=== PATIENT | male | born 1970 | race African-American/Black ===

== ENCOUNTER 2017-04-19 17:29 | Emergency (ER) | payer OTHER ==
[2017-04-19] MEDS ORDERED: CLINDAMYCIN 600MG PREMIX IVPB 600 MG/50 ML BAG IVPB ONE (18:11)
[2017-04-19] MEDS ORDERED: SODIUM CHLORIDE 1,000 ML IV STA (18:11)
[2017-04-19] MEDS ORDERED: KETOROLAC TROMETHAMINE 30 MG/1 ML VIAL IVPUSH ONE (18:11)
--- NOTE | 2017-04-19 18:11 | PDOC ---
History of Present Illness - General History Source: Patient Exam Limitations: No Limitations - History of Present Illness Initial Comments: 04/19/17 18:13 The patient is a 46 year old male with no significant past medical history who presents to the ED with complaints of throat pain, ear pain and eye pain for several days. The patient reports an onset of left sided throat pain that started 5 days ago. He states his throat pain is worsened with eating. Patient notes his symptoms worsened and he later developed left sided ear pain and left sided eye pain. Patient went to urgent care earlier today, was negative for strep throat, and was sent to the ED for further testing. Patient denies taking any medication for pain. Denies fever or chills. Denies cough or shortness of breath. Denies chest pain or palpitations. Denies nasal congestion. Denies nausea, vomiting, or diarrhea. Denies any other symptoms. <Lincoln Iyer - Last Filed: 04/19/17 18:12> <Concepción Walker - Last Filed: 04/20/17 12:02> - General Chief Complaint: Sore Throat Stated Complaint: LEFT EAR,EYE, PAIN Time Seen by Provider: 04/19/17 17:52 Past History <Lincoln Iyer - Last Filed: 04/19/17 18:12> - Past Medical History Asthma: Yes (childhood) Cardiac Disorders: No CVA: No COPD: No CHF: No DVT: No Dementia: No Diabetes: No Disorders: Yes (kidney stones 2005) Kidney Stones: Yes - Surgical History Neurologic Surgery: Yes (SPINAL FUSION) - Suicide/Smoking/Psychosocial Hx Smoking Status: Yes Smoking History: Current every day smoker Have you smoked in the past 12 months: Yes Number of Cigarettes Smoked Daily: 3 'Breaking Loose' booklet given: 11/06/15 Hx Alcohol Use: Yes (social drinker, few beers every few months) Drug/Substance Use Hx: No Substance Use Type: None Hx Substance Use Treatment: No <Concepción Walker - Last Filed: 04/20/17 12:02> - Past Medical History Allergies/Adverse Reactions: Allergies Allergy/AdvReac Type Severity Reaction Status Date / Time No Known Allergies Allergy Verified 04/19/17 17:31 Home Medications: Ambulatory Orders Cyclobenzaprine HCl [Flexeril -] 10 mg PO HS #7 tablet 04/19/17 Review of Systems - Review of Systems Able to Perform ROS?: Yes Comments:: 04/19/17 18:13 GENERAL/CONSTITUTIONAL: No fever or chills. No weakness. HEAD, EYES, EARS, NOSE AND THROAT: + throat pain, ear pain, eye pain. No change in vision. CARDIOVASCULAR: No chest pain or shortness of breath. RESPIRATORY: No cough, wheezing, or hemoptysis. GASTROINTESTINAL: No nausea, vomiting, diarrhea or constipation. GENITOURINARY: No dysuria, frequency, or change in urination. MUSCULOSKELETAL: No joint or muscle swelling or pain. No neck or back pain. SKIN: No rash NEUROLOGIC: No headache, vertigo, loss of consciousness, or change in strength/ sensation. ENDOCRINE: No increased thirst. No abnormal weight change. HEMATOLOGIC/LYMPHATIC: No anemia, easy bleeding, or history of blood clots. ALLERGIC/IMMUNOLOGIC: No hives or skin allergy. All Other Systems: Reviewed and Negative <Lincoln Iyer - Last Filed: 04/19/17 18:12> *Physical Exam - Physical Exam Comments: GENERAL: Awake, alert, and fully oriented, in no acute distress HEAD: No signs of trauma EYES: PERRLA, EOMI, sclera anicteric, conjunctiva clear ENT: Auricles normal inspection, hearing grossly normal, nares patent, oropharynx erythematous without exudates. Moist mucosa. +Erythema to the superior and inferior edges of the L TM. NECK: Normal ROM. No JVD or masses. +L anterior cervical lymphadenopathy. +Soft tissue tenderness L neck. No asymmetry. No mastoid tenderness. LUNGS: Breath sounds equal, clear to auscultation bilaterally. No wheezes, and no crackles HEART: Regular rate and rhythm, normal S1 and S2, no murmurs, rubs or gallops ABDOMEN: Soft, nontender, normoactive bowel sounds. No guarding, no rebound. No masses EXTREMITIES: Normal range of motion, no edema. No clubbing or cyanosis. No cords, erythema, or tenderness NEUROLOGICAL: Cranial nerves II through XII grossly intact. Normal speech, normal gait SKIN: Warm, Dry, normal turgor, no rashes or lesions noted. <Concepción Walker - Last Filed: 04/20/17 12:02> ED Treatment Course - LABORATORY CBC & Chemistry Diagram: 04/19/17 18:40 04/19/17 18:40 <Concepción Walker - Last Filed: 04/20/17 12:02> Medical Decision Making - Medical Decision Making 04/19/17 19:[address] Beckman at shift change. Awaiting CT soft tissue neck, as patient has significant tenderness of the left side of neck and limited ability to turn to the R due to the pain. Will obtain CT r/o abscess. <Concepción Walker - Last Filed: 04/20/17 12:02> *DC/Admit/Observation/Transfer - Attestations Scribe Attestion: 04/19/17 18:13 Documentation prepared by Lincoln Iyer, acting as emergency medical technician basic for Concepción Walker MD <Lincoln Iyer - Last Filed: 04/19/17 18:12> <Concepción Walker - Last Filed: 04/20/17 12:02> Diagnosis at time of Disposition: Neck pain on left side, Viral illness - Discharge Dispostion Disposition: HOME Condition at time of disposition: Stable - Prescriptions Prescriptions: Cyclobenzaprine HCl [Flexeril -] 10 mg PO HS #7 tablet - Patient Instructions Additional Instructions: Take Tylenol or Motrin as needed for pain. In addition for stiffness of the neck U can take Flexeril one tablet before bed. Return to the emergency department immediately with ANY new, persistent or worsening symptoms. Continue any medications as previously prescribed by your physician. You should follow up with your primary doctor as soon as possible regarding today's emergency department visit. . Please make sure your doctor reviews the results of your emergency evaluation. Thank you for coming to the Emergency Department today for your care. It was a pleasure to see you today. Please note that your evaluation is INCOMPLETE until you follow-up with your doctor.
[2017-04-19] MEDS ORDERED: KETOROLAC TROMETHAMINE 30 MG/1 ML VIAL ONE (18:50)
[2017-04-19] MEDS ORDERED: CLINDAMYCIN PHOSPHATE 600 MG/4 ML VIAL ONE (18:51)
[2017-04-19 19:04] VITALS: BP 122/77; PULSE 53; TEMP 98.3; BMI 30.8
[2017-04-19 19:05] LABS: BASO % 2.4 % (0-2.0); EOS % 3.2 % (0-4.5); HEMATOCRIT 42.9 % (35.4-49); HEMOGLOBIN 14.4 GM/dl (11.7-16.9); LYMPH % 41.1 % (8-40); MCH 29.2 pg (25.7-33.7); MCHC 33.7 g/dl (32.0-35.9); MEAN CELL VOLUME 86.7 fl (80-96); MEAN PLT VOLUME 8.2 fl (7.5-11.1); MONO % 10.4 % (3.8-10.2); NEUT % 42.9 % (42.8-82.8); PLATELET COUNT 338 K/MM3 (134-434); RBC 4.95 M/mm3 (4.00-5.60); RDW 13.5 % (11.9-15.9); WHITE BLOOD COUNT 7.5 K/mm3 (4.0-10.8)
[2017-04-19 19:18] LABS: ALBUMIN 3.8 g/dl (3.5-5.0); ALK PHOS 72 U/L (32-92); ANION GAP 5 (8-16); BILIRUBIN,TOTAL 0.5 mg/dl (0.2-1.0); BLOOD UREA NITROGEN 12 mg/dl (7-18); CALCIUM 9.3 mg/dl (8.4-10.2); CHLORIDE 101 mmol/L (98-107); CO2 29 mmol/L (22-28); CREATININE 0.9 mg/dl (0.6-1.3); GLUCOSE,RANDOM 84 mg/dl (74-106); SGOT/AST 17 U/L (10-42); SGPT/ALT 21 U/L (10-40); SODIUM 135 mmol/L (136-145); TOT PROT 6.8 g/dl (6.4-8.3)
--- NOTE | 2017-04-19 19:24 | PDOC ---
*Physical Exam - Vital Signs Last Vital Signs Temp Pulse Resp BP Pulse Ox 98.3 F 53 L 20 122/77 96 04/19/17 17:30 04/19/17 17:30 04/19/17 17:30 04/19/17 17:30 04/19/17 17:30 ED Treatment Course - LABORATORY CBC & Chemistry Diagram: 04/19/17 18:40 02 18:40 - ADDITIONAL ORDERS Additional order review: Laboratory Results 04/19/17 18:40 Sodium 135 L Potassium 4.0 Chloride 101 Carbon Dioxide 29 H Anion Gap 5 L BUN 12 Creatinine 0.9 Creat Clearance w eGFR > 60 Random Glucose 84 Calcium 9.3 Total Bilirubin 0.5 D AST 17 ALT 21 Alkaline Phosphatase 72 Total Protein 6.8 Albumin 3.8 04/19/17 18:40 RBC 4.95 MCV 86.7 MCHC 33.7 RDW 13.5 MPV 8.2 Neutrophils % 42.9 D Lymphocytes % 41.1 H D Monocytes % 10.4 H Eosinophils % 3.2 Basophils % 2.4 H D - Medications Given in the ED: ED Medications Discontinued Medications Generic Name Dose Route Start Last Admin Trade Name Freq PRN Reason Stop Dose Admin Clindamycin Phosphate 600 mg in 50 mls @ 100 mls/hr 04/19/17 18:11 04/19/17 18:58 Cleocin 600 Mg Premix Ivpb - IVPB 04/19/17 18:40 100 mls/hr ONCE ONE Administration Sodium Chloride 1,000 mls @ 1,000 mls/hr 04/19/17 18:11 04/19/17 18:58 Normal Saline - IV 04/19/17 19:10 1,000 mls/hr ASDIR STA Administration Ketorolac Tromethamine 30 mg 04/19/17 18:11 04/19/17 18:58 Toradol Injection - IVPUSH 04/19/17 18:12 30 mg ONCE ONE Administration Progress Note - Progress Note Progress Note: Care of this patient was transferred to ok from Dr. Walker at 1900 hrs. This is a 46-year-old male with some mild erythema of his tympanic membrane and significant discomfort and tenderness of his left lateral face and neck. Patient is afebrile and he had a workup including a CBC with a normal white count and no left shift. Patient's chemistries are normal Patient has a CT of his neck pending to rule out any soft tissue abscess or infection. EXAM: CT neck with contrast HISTORY: Diffuse left-sided neck pain. COMPARISON: None. FINDINGS: 1. There are mildly prominent bilateral cervical lymph nodes. These are nonspecific in appearance and are most likely inflammatory in nature. None demonstrate necrosis. 2. There is moderate prominence of the palatine tonsils without associated areas of abnormal tonsillar or peritonsillar enhancement. 3. There is no evidence of an inflammatory process or abscess in the superficial or deep soft tissues of the neck. 4. There is normal enhancement of the major cervical vascular structures. 5. The bony structures are unremarkable in appearance. This study was discussed with Dr Shaw 8:30 PM April 19, 2017. THIS DOCUMENT HAS BEEN ELECTRONICALLY SIGNED Concepción Jackson MD 04/19/2017 20:45 EST Patient's symptoms most likely are secondary to a viral type illness. As patient has a normal white count and no left shift. There could also be a torticollis component to the symptoms so we'll give patient a short course of some Flexeril to see if that will improve his symptoms Otherwise patient advised to take ibuprofen or Tylenol for the pain and follow- up with his doctor next week if not improved *DC/Admit/Observation/Transfer Diagnosis at time of Disposition: Neck pain on left side, Viral illness - Discharge Dispostion Disposition: HOME Condition at time of disposition: Stable - Referrals - Patient Instructions Additional Instructions: Take Tylenol or Motrin as needed for pain. In addition for stiffness of the neck U can take Flexeril one tablet before bed. Return to the emergency department immediately with ANY new, persistent or worsening symptoms. Continue any medications as previously prescribed by your physician. You should follow up with your primary doctor as soon as possible regarding today's emergency department visit. . Please make sure your doctor reviews the results of your emergency evaluation. Thank you for coming to the Emergency Department today for your care. It was a pleasure to see you today. Please note that your evaluation is INCOMPLETE until you follow-up with your doctor. - Post Discharge Activity
== END 2017-04-19 21:09 | disposition home or self-care (01) ==
LOC: FER 17:29
PROC: 3E03329 Introduction of Other Anti-infective into Peripheral Vein, Percutaneous Approach (ICD-10-PCS; principal; 2017-04-19)
PROC: 3E0337Z Introduction of Electrolytic and Water Balance Substance into Peripheral Vein, Percutaneous Approach (ICD-10-PCS; 2017-04-19)
PROC: 3E033GC Introduction of Other Therapeutic Substance into Peripheral Vein, Percutaneous Approach (ICD-10-PCS; 2017-04-19)
DX: B34.9 Viral infection, unspecified (principal); M54.2 Cervicalgia; F17.210 Nicotine dependence, cigarettes, uncomplicated
CPT/HCPCS: 36415; 70491-TC; 80053; 85025; 96365; 96375; 99282-25

== ENCOUNTER 2019-10-17 19:22 | Emergency (ER) | payer OTHER ==
--- NOTE | 2019-10-17 19:38 | PDOC ---
Rapid Medical Evaluation Time Seen by Provider: 10/17/19 19:34 Medical Evaluation: Allergies Allergy/AdvReac Type Severity Reaction Status Date / Time No Known Allergies Allergy Verified 09/22/17 20:27 10/17/19 19:35 I have performed a brief in-person evaluation of this patient. The patient presents with a chief complaint of: L flank pain x few days. No n/v/f/c or dysuria. Might have had renal stones in the past, smoker Pertinent physical exam findings:stable, mildly uncomfortable I have ordered the following:labs/ua The patient will proceed to the ED for further evaluation. Discharge Disposition - Diagnosis Left flank pain - Referrals - Patient Instructions - Post Discharge Activity
[2019-10-17 19:39] VITALS: BMI 35.2
--- NOTE | 2019-10-17 21:13 | PDOC ---
Attending Attestation - Resident Resident Name: Mayito Honeycutt - ED Attending Attestation I have performed the following: I have examined & evaluated the patient, The case was reviewed & discussed with the resident, I agree w/resident's findings & plan - HPI HPI: 10/17/19 21:30 see resident hpi - Physicial Exam PE: 10/17/19 21:30 see resident exam - Medical Decision Making 10/17/19 21:30 48-year-old male with left flank pain and possible history of ureterolithiasis requiring procedure Plan for labs, CT scan abdomen and pelvis IV fluid normal saline and opioid analgesics pending results Discharge - Discharge Information Problems reviewed: Yes Clinical Impression/Diagnosis: Left flank pain - Follow up/Referral Referrals: Riaz Parker MD [Primary Care Provider] - - Patient Discharge Instructions - Post Discharge Activity
[2019-10-17] MEDS ORDERED: KETOROLAC TROMETHAMINE 15 MG/ML VIAL IVPUSH ONE (21:21)
[2019-10-17] MEDS ORDERED: morphine CARPU-JECT 4 MG/1 ML DISP.SYRIN IVPUSH ONE (21:23)
[2019-10-17] MEDS ORDERED: ONDANSETRON 4 MG/2 ML VIAL IVPUSH ONE (21:24)
[2019-10-17] MEDS ORDERED: LACTATED RINGERS SOLUTION 1000 ML INFUS.BAG IV ONE (21:24)
[2019-10-17 21:55] LABS: BASO % 0.9 % (0-2.0); EOS % 2.7 % (0-4.5); HEMATOCRIT 45.6 % (35.4-49); HEMOGLOBIN 15.5 GM/dL (11.7-16.9); LYMPH % 36.2 % (8-40); MCH 29.8 pg (25.7-33.7); MCHC 33.9 g/dl (32.0-35.9); MEAN CELL VOLUME 87.9 fl (80-96); MEAN PLT VOLUME 8.4 fl (7.5-11.1); MONO % 8.7 % (3.8-10.2); NEUT % 51.5 % (42.8-82.8); PLATELET COUNT 299 K/MM3 (134-434); RBC 5.19 M/mm3 (4.00-5.60); RDW 14.4 % (11.9-15.9); WHITE BLOOD COUNT 9.2 K/mm3 (4.0-10.0)
[2019-10-17 21:56] LABS: PH,URINE 5.5 (5.0-8.0); URINE APPEARANCE Clear; URINE BILIRUBIN Negative (NEGATIVE); URINE COLOR Yellow; URINE GLUCOSE (UA) Negative (NEGATIVE); URINE KETONE Negative (NEGATIVE); URINE LEUK ESTERASE Negative (NEGATIVE); URINE NITRITE Negative (NEGATIVE); URINE PROTEIN Negative (NEGATIVE); URINE UROBILINOGEN 0.2 mg/dL (0.2-1.0)
[2019-10-17 22:17] LABS: ALBUMIN 3.8 g/dl (3.4-5.0); BILIRUBIN,TOTAL 0.3 mg/dL (0.2-1); BLOOD UREA NITROGEN 13.5 mg/dL (7-18); CALCIUM 9.2 mg/dL (8.5-10.1); POTASSIUM 4.3 mmol/L (3.5-5.1); TOT PROT 7.5 g/dl (6.4-8.2)
[2019-10-17] MEDS ORDERED: morphine SULFATE 4 MG/ML VIAL ONE (22:33)
--- NOTE | 2019-10-17 23:54 | PDOC ---
History of Present Illness - General Chief Complaint: Pain, Acute Stated Complaint: PAIN Time Seen by Provider: 10/17/19 19:34 - History of Present Illness Initial Comments: 48 YOM no significant medical history presents with left flank and abdominal pain of 4 days duration. Pain is 8/10 in intensity, sharp in quality, radiates f rom flank to abdomen, no other associated symptoms. Patient reports no trauma to the area. Patient denies fever, chills, nausea, vomiting, diarrhea, changes in urinary habits, blood in urine, change in bowel habits, blood in stool. Constitutional: No Weight Change, No Fever, No Chills, No Night Sweats, No Fatigue, No Malaise ENT/Mouth: No Hearing Changes, No Ear Pain, No Nasal Congestion, No Sinus Pain, No Hoarseness, No sore throat, No Rhinorrhea, No Swallowing Difficulty Eyes: No Eye Pain, No Swelling, No Redness, No Foreign Body, No Discharge, No Vision Changes Cardiovascular: No Chest Pain, No SOB, No PND, No Dyspnea on Exertion, No Orthopnea, No Claudication, No Edema, No Palpitations Respiratory: No Cough, No Sputum, No Wheezing, No Smoke Exposure, No Dyspnea Gastrointestinal: No Nausea, No Vomiting, No Diarrhea, No Constipation, No Heartburn, No Anorexia, No Dysphagia, No Hematochezia, No Melena, No Flatulence, No Jaundice Genitourinary: No Dysmenorrhea, No DUB, No Dyspareunia, No Dysuria, No Urinary Frequency, No Hematuria, No Urinary Incontinence, No Urgency, No Urinary Flow Changes, No Hesitancy Musculoskeletal: No Arthralgias, No Myalgias, No Joint Swelling, No Joint Stiffness, No Back Pain, No Neck Pain, No Injury History Skin: No Skin Lesions, No Pruritis, No Hair Changes, No Breast/Skin Changes, No Nipple Discharge Neuro: No Weakness, No Numbness, No Paresthesias, No Loss of Consciousness, No Syncope, No Dizziness, No Headache, No Coordination Changes, No Recent Falls Psych: No Anxiety/Panic, No Depression, No Insomnia, No Personality Changes, No Delusions, No Rumination, No SI/HI/AH/VH, No Social Issues, No Memory Changes, No Violence/Abuse Hx., No Eating Concerns Heme/Lymph: No Bruising, No Bleeding, No Transfusions History, No Lymphadenopat hy Endocrine: No Polyuria, No Polydipsia, No Temperature Intolerance 10/18/19 00:00 Past History - Medical History Allergies/Adverse Reactions: Allergies Allergy/AdvReac Type Severity Reaction Status Date / Time No Known Allergies Allergy Verified 10/17/19 19:36 Home Medications: Ambulatory Orders Cyclobenzaprine HCl [Flexeril -] 10 mg PO HS #7 tablet 04/19/17 Cyclobenzaprine HCl [Flexeril -] 10 mg PO TID PRN #14 tablet 09/23/17 Ibuprofen 800 mg PO QID PRN #20 tablet 09/23/17 Asthma: Yes (childhood) Cardiac Disorders: No CVA: No COPD: No CHF: No DVT: No Dementia: No Diabetes: No Disorders: Yes (kidney stones 2005) Kidney Stones: Yes - Surgical History Neurologic Surgery: Yes (SPINAL FUSION) - Psycho-Social/Smoking History Smoking Status: Yes Smoking History: Current every day smoker Have you smoked in the past 12 months: Yes Number of Cigarettes Smoked Daily: 4 Cigars Per Day: 0 Information on smoking cessation initiated: No 'Breaking Loose' booklet given: 11/06/15 - Substance Abuse Hx (Audit-C & DAST Scrn) How often the patient has a drink containing alcohol: Monthly or less Score: In Men: 4 or > Positive; In Women: 3 or > Positive: 1 Screen Result (Pos requires Nsg. Audit-10AR): Negative *Physical Exam - Vital Signs Last Vital Signs Temp Pulse Resp BP Pulse Ox 98.6 F 79 18 136/90 99 10/17/19 19:36 10/17/19 19:36 10/17/19 19:36 10/17/19 19:36 10/17/19 19:36 - Physical Exam General Appearance: Yes: Nourished, Appropriately Dressed, Moderate Distress HEENT: positive: EOMI, ESTHER, Normal ENT Inspection, Normal Voice Neck: positive: Trachea midline, Normal Thyroid Respiratory/Chest: positive: Lungs Clear, Normal Breath Sounds Cardiovascular: positive: Regular Rhythm, Regular Rate, S1, S2 Gastrointestinal/Abdominal: positive: Normal Bowel Sounds, Flat, Soft Musculoskeletal: positive: Normal Inspection, CVA Tenderness Extremity: positive: Normal Capillary Refill Integumentary: positive: Normal Color, Dry, Warm Neurologic: positive: juvenile corrections officer II-XII NML intact, Fully Oriented, Alert, Normal Mood/Affect, Normal Response, Motor Strength 07/04 ED Treatment Course - LABORATORY CBC & Chemistry Diagram: 10/17/19 21:40 10/17/19 21:40 - ADDITIONAL ORDERS Additional order review: Laboratory Results 10/17/19 10/17/19 21:40 21:40 Sodium 137 Potassium 4.3 Chloride 102 Carbon Dioxide 29 Anion Gap 6 L BUN 13.5 Creatinine 1.0 Est GFR (CKD-EPI)AfAm 104.15 Est GFR (CKD-EPI)NonAf 89.86 Random Glucose 84 Calcium 9.2 Total Bilirubin 0.3 AST 19 ALT 34 Alkaline Phosphatase 96 Creatine Kinase 162 Troponin I 0.02 Total Protein 7.5 Albumin 3.8 Urine Color Yellow Urine Appearance Clear Urine pH 5.5 Ur Specific Fowler 1.020 Urine Protein Negative Urine Glucose (UA) Negative Urine Ketones Negative Urine Blood Negative Urine Nitrite Negative Urine Bilirubin Negative Urine Urobilinogen 0.2 Ur Leukocyte Esterase Negative 10/17/19 21:40 RBC 5.19 MCV 87.9 MCHC 33.9 RDW 14.4 MPV 8.4 Neutrophils % 51.5 Lymphocytes % 36.2 D Monocytes % 8.7 Eosinophils % 2.7 Basophils % 0.9 - RADIOLOGY Radiology Studies Ordered: Category Date Time Status SPIRAL- RENAL-STONE CT [CT] Stat CT Scan 10/17/19 21:20 Completed - Medications Given in the ED: ED Medications Discontinued Medications Generic Name Dose Route Start Last Admin Trade Name Freq PRN Reason Stop Dose Admin Ketorolac Tromethamine 15 mg 10/17/19 21:21 10/17/19 22:48 Toradol Injection - IVPUSH 10/17/19 21:22 Not Given ONCE ONE Lactated Ringer's 1,000 ml 10/17/19 21:24 10/17/19 22:47 Lactated Ringers Solution IV 10/17/19 21:25 1,000 ml ONCE ONE Administration Morphine Sulfate 4 mg 10/17/19 21:23 10/17/19 22:47 Morphine Injection - IVPUSH 10/17/19 21:24 4 mg ONCE ONE Administration Ondansetron HCl 4 mg 10/17/19 21:24 10/17/19 22:48 Zofran Injection IVPUSH 10/17/19 21:25 Not Given ONCE ONE Medical Decision Making - Medical Decision Making 48 YOM no significant medical history presents with left flank and abdominal pain of 4 days duration. Pain is 8/10 in intensity, sharp in quality, radiates from flank to abdomen, no other associated symptoms. Patient reports no trauma to the area. Patient denies fever, chills, nausea, vomiting, diarrhea, changes in urinary habits, blood in urine, change in bowel habits, blood in stool. On arrival, vitals were wnl. Physical exam unremarkable. ddx includes: mesenteric ischemia, nephrolithiasis, diverticulitis, AAA, pyelonephritis, cystitis. plan: UA, CBC, CMP, lactate, CT abdomen and pelvis reassess: UA and labs wnl, CT abdomen and pelvis negative. Patient requested additional work up to include CT with contrast which was done. CT w/ contrast was negative as well. Given patients multiple encounters with behavioral health and substance abuse treatment urine toxicology was performed which was positive for PCP. Patient was informed of results of labs, imagining, and toxicology as well as presumptive diagnosis of muscular strain. He was satisfied with this work up and endorsed a desire to be discharged. dispo: discharge to home. 10/18/19 01:40 Discharge - Discharge Information Problems reviewed: Yes Clinical Impression/Diagnosis: Left flank pain, Flank pain - Admission No - Follow up/Referral Referrals: Riaz Parker MD [Primary Care Provider] - - Patient Discharge Instructions Patient Printed Discharge Instructions: DI for Flank Pain Additional Instructions: You were seen in the emergency department for flank pain and abdominal pain. You received CT with and without contrast as well as labs. Your labs and imagining were unremarkable. Please return to the emergency department if you experience worsening of your symptoms or any of the following: chest pain, shortness of breath, vomiting, diarrhea, fever, chills, blood in your urine or stool. Please follow up with your primary care regarding your visit to the emergency department. - Post Discharge Activity
[2019-10-18 00:16] LABS: COCAINE, UR NEGATIVE ng/ml (CUTOFF=300); OPIATES, URI NEGATIVE ng/ml (CUTOFF=300); URINE AMPHETAMINES NEGATIVE ng/ml (CUTOFF=500); URINE BARBITURATES NEGATIVE ng/ml (CUTOFF=200)
[2019-10-18 00:17] LABS: METHADONE, UR NEGATIVE ng/ml (CUTOFF=300); URINE BENZODIAZEPINES NEGATIVE ng/ml (CUTOFF=200)
[2019-10-18 00:19] LABS: PHENCYCLIDINE,URINE POSITIVE ng/ml (CUTOFF=25)
[2019-10-18 02:16] VITALS: BP 128/76; PULSE 53; TEMP 98.2
--- NOTE | 2019-10-18 09:08 | EKG ---
Test Reason : Blood Pressure : / mmHG Vent. Rate : 045 BPM Atrial Rate : 045 BPM P-R Int : 164 ms QRS Dur : 084 ms QT Int : 456 ms P-R-T Axes : 052 060 027 degrees QTc Int : 394 ms SINUS BRADYCARDIA OTHERWISE NORMAL ECG WHEN COMPARED WITH ECG OF 07-NOV-2015 09:03, NO SIGNIFICANT CHANGE WAS FOUND Confirmed by Filippo Moon MD ([id number]) on 10/18/2019 9:08:01 AM Referred By: Confirmed By:Filippo Moon MD
== END 2019-10-18 02:15 | disposition home or self-care (01) ==
LOC: JER 19:22
PROC: 3E033NZ Introduction of Analgesics, Hypnotics, Sedatives into Peripheral Vein, Percutaneous Approach (ICD-10-PCS; principal; 2019-10-17)
DX: R10.9 Unspecified abdominal pain (principal)
CPT/HCPCS: 36415; 71275-TC; 74174-TC; 74176-TC; 80053; 80307; 81003; 82550; 82553; 83605; 84484; 85025; 87086; 93005; 93010; 99285-25; Q9967

== ENCOUNTER 2020-01-04 08:48 | Day surgery (SDC) | payer OTHER ==
--- OUTSIDE RECORDS SUMMARY | 2019-12-29 15:43 | XMS ---
:1970 Author Organization [facility] Support Name Relationship Address Phone [facility] Unavailable [address] [phone] [place] [address] SUNIL LEAL DAUGHTER [address] [place] [address] SILVINA LEAL PARTNER [address] [place] [address] MARCIN LEAL Mother [address] [place] [address] SUNIL LEAL Child [address] [place] [address] Re-disclosure Warning The records that you are about to access may contain information from federally- assisted alcohol or drug abuse programs. If such information is present, then the following federally mandated warning applies: This information has been disclosed to you from records protected by federal confidentiality rules (42 CFR part 2). The federal rules prohibit you from making any further disclosure of this information unless further disclosure is expressly permitted by the written consent of the person to whom it pertains or as otherwise permitted by 42 CFR part 2. A general authorization for the release of medical or other information is NOT sufficient for this purpose. The Federal rules restrict any use of the information to criminally investigate or prosecute any alcohol or drug abuse patient.The records that you are about to access may contain highly sensitive health information, the redisclosure of which is protected by Article 27-F of the [facility] Public Health law. If you continue you may haveaccess to information: Regarding HIV / AIDS; Provided by facilities licensed or operated by the [facility] Office of Mental Health; or Provided by the [facility] Office for People With Developmental Disabilities. If such information is present, then the following [facility] mandated warning applies: This information has been disclosed to you from confidential records which are protected by state law. State law prohibits you from making any further disclosure of this information without the specific written consent of the person to whom it pertains, or as otherwise permitted by law. Any unauthorized further disclosure in violation of state law may result in a fine or long-term sentence or both. A general authorization for the release of medical or other information is NOT sufficient authorization for further disclosure. Insurance Providers Payer name Policy type Policy ID Covered Covered alliance party's Policy P emerson / Coverage alliance party ID relationship to Nguyen Inf ormation type nguyen [facility] [id number] [id number] PENDING [id number] SP [id number] / ONLY [place] [id number] HEALTH PLANS
[2019-12-29 16:41] VITALS: BMI 33.6
[2020-01-04] MEDS ORDERED: DEXAMETHASONE SOD PHOSPHATE 4 MG/1 ML VIAL ONE ×2 (10:46→11:10)
[2020-01-04] MEDS ORDERED: MIDAZOLAM HCL 2 MG/2 ML SINGLE DOSE VIAL ONE (10:46)
[2020-01-04] MEDS ORDERED: PROPOFOL 20 ML ONE (10:46)
[2020-01-04] MEDS ORDERED: ONDANSETRON 4 MG/2 ML VIAL ONE ×3 (10:46→12:24)
[2020-01-04] MEDS ORDERED: LIDOCAINE HCL/PF 2% SDV 5ML VIAL ONE (10:46)
[2020-01-04] MEDS ORDERED: ceFAZolin SODIUM 1 GM VIAL ONE (11:17)
[2020-01-04] MEDS ORDERED: ONDANSETRON 4 MG/2 ML VIAL IVPUSH PRN (11:38)
[2020-01-04] MEDS ORDERED: oxyCODONE HCL 5 MG TABLET PO PRN ×2 (11:38)
[2020-01-04] MEDS ORDERED: LACTATED RINGERS SOLUTION 1,000 ML IV SCH (11:45)
[2020-01-04] MEDS ORDERED: BUPIVACAINE HCL/PF 0.25% (2.5MG/ML) 10 ML VIAL ONE (11:58)
[2020-01-04] MEDS ORDERED: GUM MASTIC/STORAX/MSAL/ALCOHOL 1 DRP DROPSBTL MC ONE (11:59)
[2020-01-04] MEDS ORDERED: BUPIVACAINE HCL/PF 0.25% (2.5MG/ML) 10 ML VIAL IJ ONE (12:08)
[2020-01-04] MEDS ORDERED: oxyCODONE HCL 5 MG TABLET ONE ×3 (12:44→13:16)
[2020-01-04] MEDS ORDERED: HYDROmorphone HCL 0.5 MG/0.5 ML SYRINGE ONE (13:10)
[2020-01-04 13:20] VITALS: TEMP 97.7
[2020-01-04] MEDS ORDERED: HYDROmorphone HCL CARPU-JECT 2 MG/1 ML DISP.SYRIN IVPUSH ONE (15:19)
[2020-01-04] MEDS ORDERED: oxyCODONE HCL 5 MG TABLET PO ONE (15:19)
[2020-01-04 17:10] VITALS: BP 124/71; PULSE 65
--- NOTE | 2020-01-04 17:13 | OP ---
DATE OF OPERATION: 01/04/2020 PREOPERATIVE DIAGNOSIS: Left thumb laceration with possible digital nerve injury. POSTOPERATIVE DIAGNOSIS: Left thumb laceration with radial digital nerve contusion and compression secondary to scar tissue. OPERATIVE PROCEDURE: Left thumb wound exploration with radial digital nerve lysis with internal neurolysis using operative microscope. SURGEON: Clint Johnson MD [employer] MANAGER: IVA Wilson ANESTHESIA: General. COMPLICATIONS: None. ESTIMATED BLOOD LOSS: Minimal. INDICATION FOR PROCEDURE: The patient is a 49-year-old male with the above finding, indicated for operative treatment. Risks, benefits, alternatives were discussed with him at length. Proper informed consent was obtained. PROCEDURE: After proper identification of patient and correct operative site patient was brought to the operating room and placed supine on the table, all prominences well padded. General anesthesia was given. Left upper extremity was prepped and draped in the usual sterile fashion. Well-padded tourniquet was placed over the sterile prep. Esmarch bandage used to exsanguinate the left upper extremity. Tourniquet was inflated to 250 mmHg. Patients prior incision was partly opened and extended distally and proximally along the radial digital nerve border in a amanda Surinder-type approach. The radial digital nerve was identified both proximally and distally in healthy tissue and traced back to the area of injury. Severe dense scar tissue and adhesion were found in the area of injury, and the nerve was carefully dissected free. Allograft configuration was found at the level of the injury; however, it did not appear that there was any partial or complete nerve laceration. Operative microscope was brought into the field and an internal neurolysis performed by freeing the soft tissue around the fascicles as well as epineurium around the fascicles and noting that all fascicles were intact. The thumb was taken through a range of motion. There were no further adhesions, and the nerve was able to glide freely. Flexor tendon was found to be intact as well as adjacent structures in the area of the laceration other than the damage due to the laceration with scar tissue. The wound was irrigated and repaired with 5-0 fast-absorbing plain gut suture and Dermabond. Sterile dressings were applied. Patient was reversed from anesthesia and brought to the recovery room in stable condition. Filippo Lau, the nurses medical assistants phlebotomists, was integral throughout the procedure. The procedure could not have been performed without a skilled operative nurses medical assistants phlebotomists. Nicol [id number]
== END 2020-01-04 15:00 | disposition home or self-care (01) ==
LOC: FASU 08:48
PROVIDERS: ATTEND Orthopaedic Surgery Hand Surgery
PROC: 01N60ZZ Release Radial Nerve, Open Approach (ICD-10-PCS; principal; 2020-01-04 11:20)
DX: S64.32XA Injury of digital nerve of left thumb, initial encounter (principal); X58.XXXA Exposure to other specified factors, initial encounter; Y93.9 Activity, unspecified; Y92.9 Unspecified place or not applicable
CPT/HCPCS: 94760

== ENCOUNTER 2020-05-02 21:06 | Emergency (ER) | payer SELFPAY ==
[2020-05-02 21:18] VITALS: BP 145/97; PULSE 58; TEMP 99; BMI 35.2
[2020-05-02] MEDS ORDERED: ACETAMINOPHEN 1000 MG/100 ML VIAL (NON FORMULARY) IVPB ONE (21:44)
[2020-05-02] MEDS ORDERED: FAMOTIDINE 20 MG/50 ML IVPB 20 MG/50 ML MG IVPB ONE ×2 (21:44→21:51)
[2020-05-02] MEDS ORDERED: ACETAMINOPHEN INJECTION 100 ML IVPB ONE (21:51)
[2020-05-02 22:03] LABS: EOS % 2.7 % (0-4.5); HEMOGLOBIN 15.6 GM/dl (11.7-16.9)
[2020-05-02 22:06] LABS: BASO % 3.9 % (0-2.0); HEMATOCRIT 45.5 % (35.4-49); LYMPH % 33.6 % (8-40); MCH 30.4 pg (25.7-33.7); MCHC 34.3 g/dl (32.0-35.9); MEAN CELL VOLUME 88.7 fl (80-96); MEAN PLT VOLUME 8.4 fl (7.5-11.1); MONO % 8.8 % (3.8-10.2); PLATELET COUNT 284 K/MM3 (134-434); RBC 5.14 M/mm3 (4.00-5.60); RDW 13.7 % (11.9-15.9); WHITE BLOOD COUNT 9.6 K/mm3 (4.0-10.8)
[2020-05-02 22:13] LABS: BILIRUBIN,TOTAL 0.6 mg/dl (0.2-1); CALCIUM 9.1 mg/dl (8.5-10); CREATININE 1.2 mg/dl (0.55-1.3); POTASSIUM 4.2 mmol/L (3.5-5.1); TOT PROT 7.2 g/dl (6.4-8.2)
[2020-05-02] MEDS ORDERED: morphine CARPU-JECT 8 MG/1 ML DISP.SYRIN IVPUSH ONE (22:56)
[2020-05-02] MEDS ORDERED: morphine SULFATE 4 MG/ML VIAL ONE (23:12)
[2020-05-03] MEDS ORDERED: MAG HYDROX/AL HYDROX/SIMETH 30 ML UNIT-DOSE CUP PO ONE (01:46)
[2020-05-03] MEDS ORDERED: MAG HYDROX/AL HYDROX/SIMETH 30 ML UNIT-DOSE CUP ONE (01:48)
== END 2020-05-03 01:53 | disposition home or self-care (01) ==
LOC: FER 21:06
PROC: 3E033NZ Introduction of Analgesics, Hypnotics, Sedatives into Peripheral Vein, Percutaneous Approach (ICD-10-PCS; principal; 2020-05-02)
PROC: 3E033GC Introduction of Other Therapeutic Substance into Peripheral Vein, Percutaneous Approach (ICD-10-PCS; 2020-05-02)
DX: R10.13 Epigastric pain (principal)
CPT/HCPCS: 36415; 74176-TC; 80053; 81003; 81015; 83690; 84484; 85025; 87086; 93005; 99285-25; J0131

== ENCOUNTER 2021-07-17 21:40 | Emergency (ER) | payer OTHER ==
[2021-07-17 21:53] VITALS: BP 134/75; PULSE 58; TEMP 98.5; BMI 33.9
== END 2021-07-18 00:53 | disposition home or self-care (01) ==
LOC: FER 21:40
DX: R10.30 Lower abdominal pain, unspecified (principal)
CPT/HCPCS: 74176-TC; 99284-25

== ENCOUNTER 2021-12-31 18:09 | Emergency (ER) | payer OTHER ==
[2021-12-31 18:23] VITALS: BP 153/89; PULSE 78; RESP 18; TEMP 98.9; BMI 33.9
[2021-12-31] MEDS ORDERED: FAMOTIDINE 20 MG/50 ML IVPB 20 MG/50 ML MG IVPB ONE ×2 (19:27→19:44)
[2021-12-31] MEDS ORDERED: SODIUM CHLORIDE 1,000 ML IV SCH (19:30)
[2021-12-31] MEDS ORDERED: ACETAMINOPHEN 1000 MG/100 ML BAG IVPB ONE (19:40)
[2021-12-31 20:04] LABS: HEMOGLOBIN 17.3 G/dL (11.7-16.9); MCH 31.7 pg (25.7-33.7); MEAN CELL VOLUME 88.1 fl (80-96); MEAN PLT VOLUME 7.8 fl (7.5-11.1); PLATELET COUNT 292.7 10^3/uL (134-434); RBC 5.45 10^6/uL (4.00-5.60); RDW 14.8 % (11.9-15.9); WHITE BLOOD COUNT 8.1 10^3/uL (4.0-10.8)
[2021-12-31] MEDS ORDERED: ACETAMINOPHEN INJECTION 100 ML IVPB ONE (20:04)
[2021-12-31 20:22] LABS: ALBUMIN 4.2 g/dl (3.4-5.0); BILIRUBIN,TOTAL 0.8 mg/dl (0.2-1); CALCIUM 9.5 mg/dl (8.5-10); CREATININE 1.1 mg/dl (0.55-1.3); TOT PROT 7.8 g/dl (6.4-8.2)
== END 2021-12-31 22:21 | disposition home or self-care (01) ==
LOC: FER 18:09
PROC: 3E0333Z Introduction of Anti-inflammatory into Peripheral Vein, Percutaneous Approach (ICD-10-PCS; principal; 2021-12-31)
PROC: 3E033GC Introduction of Other Therapeutic Substance into Peripheral Vein, Percutaneous Approach (ICD-10-PCS; 2021-12-31)
DX: R10.13 Epigastric pain (principal); M54.50 Low back pain, unspecified
CPT/HCPCS: 36415; 74176-TC; 80053; 81003; 82550; 82553; 83690; 84484; 85027; 93005; 99285-25

== ENCOUNTER 2023-11-11 04:19 | Day surgery (SDC) | payer SELFPAY ==
[2023-11-09 15:09] VITALS: BMI 36.1
[2023-11-11 09:04] VITALS: TEMP 97.6
[2023-11-11 09:38] VITALS: BP 126/81; PULSE 52; RESP 16
== END 2023-11-11 09:58 | disposition home or self-care (01) ==
LOC: JASU-ENDO 04:19
PROVIDERS: ATTEND Internal Medicine Gastroenterology
PROC: 0DBE8ZX Excision of Large Intestine, Via Natural or Artificial Opening Endoscopic, Diagnostic (ICD-10-PCS; 2023-11-11)
PROC: 0DB98ZX Excision of Duodenum, Via Natural or Artificial Opening Endoscopic, Diagnostic (ICD-10-PCS; 2023-11-11)
PROC: 0DB68ZX Excision of Stomach, Via Natural or Artificial Opening Endoscopic, Diagnostic (ICD-10-PCS; 2023-11-11)
PROC: 0DB38ZX Excision of Lower Esophagus, Via Natural or Artificial Opening Endoscopic, Diagnostic (ICD-10-PCS; 2023-11-11)
PROC: 0DBM8ZX Excision of Descending Colon, Via Natural or Artificial Opening Endoscopic, Diagnostic (ICD-10-PCS; principal; 2023-11-11 08:00)
DX: K29.80 Duodenitis without bleeding (principal); K21.00 Gastro-esophageal reflux disease with esophagitis, without bleeding; K63.5 Polyp of colon; K64.0 First degree hemorrhoids; K63.89 Other specified diseases of intestine
CPT/HCPCS: 88305-TC; 88342-TC